=== PATIENT | male | born 1965 | race Caucasian/White ===

== ENCOUNTER 2021-05-12 16:22 | Emergency (ER) | payer OTHER, SELFPAY ==
[2021-05-12 16:38] VITALS: BP 173/97; PULSE 99; RESP 16; TEMP 36.1; O2SAT 98
--- NOTE | 2021-05-12 17:54 | ED.URI ---
HPI - URI/Sore Throat General Chief Complaint: Upper Respiratory Infection Stated Complaint: congestion runny nose cough Time Seen by Provider: 05/12/21 17:58 Source: patient and family History of Present Illness HPI Narrative: 3 day history of nasal congestion and cough. no shortness of breath and no chest pain. MD elicited complaint: nasal congestion Related Data Home Medications Medication Instructions Recorded Confirmed clopidogrel [Plavix] 75 mg PO DAILY 05/12/21 05/12/21 losartan 50 mg PO DAILY 05/12/21 05/12/21 metoprolol tartrate 25 mg PO BID 05/12/21 05/12/21 pravastatin 80 mg PO DAILY 05/12/21 05/12/21 tramadol 100 mg PO QID 05/12/21 05/12/21 Allergies Allergy/AdvReac Type Severity Reaction Status Date / Time No Known Allergies Allergy Unknown Verified 05/12/21 17:03 Review of Systems Review of Systems: CONSTITUTIONAL: Denies chills, or sweats. Reports fever and generalized body aches EYES: Denies visual changes, redness, or discharge. ENT: Denies otalgia. Reports nasal congestion runny nose and sore throat CARDIOVASCULAR: Denies chest pain, palpitations, or edema. RESPIRATORY: Denies dyspnea. Reports occasional cough GASTROINTESTINAL: Denies abdominal pain, nausea, vomiting, or diarrhea. GENITOURINARY: Denies dysuria or hematuria. SKIN: Denies rash or itching. MUSCULOSKELETAL: Denies back pain, joint pain, or myalgia. Reports generalized body aches NEUROLOGIC: Denies headache, numbness, or weakness. PSYCHIATRIC: Denies anxiety or depression. Allergic/Immunologic: Comments: At time of signature, agree with nursing past medical, surgical, social and family history. There is no relevant family history pertinent to the presenting complaint Exam Narrative: The patient is a well-developed, well-nourished in no acute distress. SKIN: Skin is warm and dry without erythema, swelling or exudate. There is good turgor. No tenting. HEAD: Atraumatic. Normocephalic. No temporal or scalp tenderness. EYES: Moist and bright. Sclera and conjunctivae normal. No discharge. PERRLA. Extraocular motions intact. Gross visual acuity intact. EARS: Pinna is normal shape and contour. Clear external auditory canals. TM pearly solano with good cone of light, no erythema or suppuration. Bilateral cerumen noted no gross hearing deficit. NOSE: pink, moist mucosa with good air movement. Clear rhinorrhea without nasal flaring. Septum midline. Mouth: moist mucous membranes. THROAT; mild erythema noted to posterior oropharynx with moderate postnasal drainage. Without exudate or ulceration.. Uvula midline. Normal movement of soft palate. NECK: Supple and nontender with full range of motion without discomfort. No meningeal signs. LUNGS: Equal and bilateral breath sounds without wheezes, rales or rhonchi. CHEST: The chest wall is without retractions or use of accessory muscles. HEART: Has a regular rate and rhythm without murmur, gallops, click or rub. ABDOMEN: Soft, nontender with positive active bowel sounds. No rebound tenderness. EXTREMITIES: Without cyanosis, clubbing or edema. Equal 2+ distal pulses and 2 second capillary refill noted. NEUROLOGIC: alert, active, . The patient moves all extremities with normal muscle strength. Normal muscle tone is noted. Normal coordination is noted. NO focal neurological findings noted. Course Course Level of Care: Express Care Visit Vital Signs Vital signs: Vital Signs Temperature 36.1 C L 05/12/21 16:38 Pulse Rate 99 05/12/21 16:38 Respiratory Rate 16 05/12/21 16:38 Blood Pressure 173/97 H 05/12/21 16:38 Pulse Oximetry 98 05/12/21 16:38 Temperature 36.1 C L 05/12/21 16:38 Pulse Rate 99 05/12/21 16:38 Respiratory Rate 16 05/12/21 16:38 Blood Pressure 173/97 H 05/12/21 16:38 Pulse Oximetry 98 05/12/21 16:38 Please [facility] schedule a followup visit with your personal physician for further evaluation and treatment. Including recheck and discussion of your blood pressure. If
[2021-05-13 20:10] LABS: SARS-CoV-2 RNA PCR Positive
== END 2021-05-12 18:11 | disposition home or self-care (01) ==
PROVIDERS: Emergency Provider Nurse Practitioner Family
DX: U07.1 COVID-19 (principal)
CPT/HCPCS: 99213; C9803; G0463; U0003; U0005